=== PATIENT | female | born 1990 | race Caucasian/White ===

== ENCOUNTER 2016-11-06 22:19 | Inpatient (IN) | payer OTHER ==
--- NOTE | 2016-11-06 22:42 | PDOC ---
History of Present Illness <Sophie Tinoco - Last Filed: 11/07/16 02:19> - General History Source: Patient Exam Limitations: No Limitations - History of Present Illness Initial Comments: 11/06/16 23:11 The patient is a 26 year old female, with significant past medical history of gallstones (03/30/16), appendectomy, who presents today complaining of RUQ pain , nausea, and vomiting starting this morning. The pain is severe, radiates to her back, and has progressively worsened throughout the day. She notes 1 episode of vomiting and last meal was spaghetti for lunch. She reports that she never followed up for the gallstones found on 03/30/16. The patient is a poor historian secondary to the pain. Her LMP was 10/14/16. Denies fever, chills, diarrhea. Allergies: Pork PCP: Dr. Maguire <Mariah Mckeon - Last Filed: 11/07/16 02:22> - General Chief Complaint: Pain, Acute Stated Complaint: ABD PAIN Time Seen by Provider: 11/06/16 22:42 Past History - Past Medical History Anemia: No Asthma: No Cancer: No Cardiac Disorders: No CVA: No COPD: No CHF: No Diabetes: No HTN: No Hypercholesterolemia: No Suicide Attempt (Hx): No Seizures: No Thyroid Disease: No - Surgical History Abdominal Surgery: Yes Appendectomy: Yes - Immunization History Immunization Up to Date: Yes - Psycho/Social/Smoking Cessation Hx Anxiety: No Suicidal Ideation: No Smoking Status: No Smoking History: Never smoked Have you smoked in the past 12 months: No Information on smoking cessation initiated: No Hx Alcohol Use: No Drug/Substance Use Hx: No Substance Use Type: None Hx Substance Use Treatment: No <Sophie Tinoco - Last Filed: 11/07/16 02:19> <Mariah Mckeon - Last Filed: 11/07/16 02:22> - Past Medical History Allergies/Adverse Reactions: Allergies Allergy/AdvReac Type Severity Reaction Status Date / Time No Known Drug Allergies Allergy Verified 11/06/16 22:29 pork derived (porcine) Allergy Verified 11/06/16 22:29 Pork/Porcine Containing Allergy Verified 11/06/16 22:29 Products Home Medications: Ambulatory Orders NK [No Known Home Medication] 03/30/16 Review of Systems - Review of Systems Able to Perform ROS?: Yes Comments:: 11/06/16 23:22 GENERAL/CONSTITUTIONAL: No fever or chills. No weakness. HEAD, EYES, EARS, NOSE AND THROAT: No change in vision. No ear pain or discharge. No sore throat. CARDIOVASCULAR: No chest pain or shortness of breath. RESPIRATORY: No cough, wheezing, or hemoptysis. GASTROINTESTINAL: Yes: nausea, 1 episode of vomiting, RUQ pain that radiates to the right back. No diarrhea or constipation. GENITOURINARY: No dysuria, frequency, or change in urination. MUSCULOSKELETAL: No joint or muscle swelling or pain. No neck or back pain. SKIN: No rash NEUROLOGIC: No headache, vertigo, loss of consciousness, or change in strength/ sensation. ENDOCRINE: No increased thirst. No abnormal weight change. HEMATOLOGIC/LYMPHATIC: No anemia, easy bleeding, or history of blood clots. ALLERGIC/IMMUNOLOGIC: No hives or skin allergy. <Mariah Mckeon - Last Filed: 11/07/16 02:22> *Physical Exam - Vital Signs Last Vital Signs Temp Pulse Resp BP Pulse Ox 97.9 F 64 20 146/21 100 11/06/16 22:29 11/06/16 22:29 11/06/16 22:29 11/06/16 22:29 11/06/16 22:29 <Sophie Tinoco - Last Filed: 11/07/16 02:19> - Vital Signs Last Vital Signs Temp Pulse Resp BP Pulse Ox 97.9 F 64 20 146/21 100 11/06/16 22:29 11/06/16 22:29 11/06/16 22:29 11/06/16 22:29 11/06/16 22:29 - Physical Exam Comments: 11/06/16 23:26 GENERAL: Awake, alert, and fully oriented. Appears uncomfortable. HEAD: No signs of trauma EYES: PERRLA, EOMI, sclera anicteric, conjunctiva clear ENT: Auricles normal inspection, hearing grossly normal, nares patent, oropharynx clear without exudates. Moist mucosa NECK: Normal ROM, supple, no lymphadenopathy, JVD, or masses LUNGS: Breath sounds equal, clear to auscultation bilaterally. No wheezes, and no crackles HEART: Regular rate and rhythm, normal S1 and S2, no murmurs, rubs or gallops ABDOMEN: Nondistended. Tenderness to the RUQ with voluntary guarding, no rebound. Normoactive bowel sounds. No masses EXTREMITIES: Normal range of motion, no edema. No clubbing or cyanosis. No cords, erythema, or tenderness NEUROLOGICAL: Cranial nerves II through XII grossly intact. Normal speech, normal gait SKIN: No jaundice. Warm, Dry, normal turgor, no rashes or lesions noted. <Mariah Mckeon - Last Filed: 11/07/16 02:22> ED Treatment Course - LABORATORY CBC & Chemistry Diagram: 11/06/16 22:55 11/06/16 22:55 <Sophie Tinoco - Last Filed: 11/07/16 02:19> - LABORATORY CBC & Chemistry Diagram: 11/06/16 22:55 11/06/16 22:55 - RADIOLOGY Radiograph Interpretation: 11/07/16 01:18 Exam: Abdominal sonogram Images: 53 Clinical indication: Right upper quadrant pain. Findings: The pancreas has a normal appearance and echotexture. The visualized aorta and proximal IVC are unremarkable. The liver parenchyma is mildly hyperechoic. The liver measures 15.8 cm in length. The right kidney has a normal appearance and echotexture measures 10.9 cm in length. No parenchymal mass, shadowing calculus or hydronephrosis is seen. A shadowing calculus is noted in the gallbladder neck. There is no mural thickening or pericholecystic fluid. The CBD measures 5 mm in diameter within normal limits. Hepatopetal flow is present in the main portal vein. Impression: Calculus in the gallbladder neck. No mural thickening or pericholecystic fluid seen. Increased echogenicity of the hepatic parenchyma consistent with fatty infiltration. Normal appearance of the visualized pancreas , CBD and right kidney. THIS DOCUMENT HAS BEEN ELECTRONICALLY SIGNED Channing Wynn M.D. 11/07/2016 00: 48 ALEXSANDRA Sepulveda Please call Imaging Team Assistant [phone] ([phone]) with questions. <Mariah Mckeon - Last Filed: 11/07/16 02:22> Medical Decision Making - Medical Decision Making 11/07/16 00:12 Pt presents to the ED complaining of the acute onset of severe RUQ pain accompanied by nausea and vomiting. Denies fever. + significant RUQ tenderness with voluntary guarding. Patient has a known history of gallstones. Differential includes cholecystitis, billiary colic, less likely pancreatitis or choledocholithiasis. Will check labs and give pain control, obtain official RUQ US and reassess. 11/07/16 01:56 Official US shows stone in the gallbladder neck. Given patient's significant discomfort, will call surgery for admission. <Sophie Tinoco - Last Filed: 11/07/16 02:19> - Medical Decision Making 11/07/16 01:59 Dr. Yordy Tesfaye was paged via paging service at 1:58am. The answering service connected the call to Dr. Yordy Tesfaye who spoke with Dr. Tinoco regarding the patient's care. <Mariah Mckeon - Last Filed: 11/07/16 02:22> *DC/Admit/Observation/Transfer - Discharge Dispostion Admit: Yes Decision to Admit order Date/Time: 11/07/16 02:04 <Sophie Tinoco - Last Filed: 11/07/16 02:19> - Attestations Scribe Attestion: 11/06/16 23:27 Documentation prepared by SHERON Lyons, acting as medical office technologist for Sophie Tinoco MD. <Mariah Mckeon - Last Filed: 11/07/16 02:22> Diagnosis at time of Disposition: Cholelithiasis - Referrals Referrals: Margareth Cevallos MD [Primary Care Provider] -
[2016-11-06] MEDS ORDERED: morphine CARPU-JECT 4 MG/1 ML DISP.SYRIN IVPUSH ONE (22:53)
[2016-11-06] MEDS ORDERED: morphine CARPU-JECT 4 MG/1 ML DISP.SYRIN ONE (23:01)
[2016-11-06 23:34] LABS: BASOPHIL 0.3 % (0-2.0); EOSINOPHIL 2.2 % (0-4.5); MCH 26.3 pg (25.7-33.7); MCHC 32.5 g/dl (32.0-36.0); MEAN CELL VOLUME 80.9 fl (80-96); NEUTROPHILS 79.6 % (42.8-82.8); PLATELET COUNT 190 K/MM3 (134-434); RDW 13.7 % (11.6-15.6); WHITE BLOOD COUNT 14.2 K/mm3 (4.0-10.0)
[2016-11-06 23:59] LABS: ANION GAP 13 (8-16); BILIRUBIN,TOTAL 0.5 mg/dL (0.2-1.0); CALCIUM 8.9 mg/dL (8.5-10.1); CO2 24 mmol/L (21-32); COCKROFT - GAULT 115.3535; CREATININE 0.7 mg/dL (0.55-1.02); GLUCOSE,RANDOM 128 mg/dL (74-106); SGOT/AST 45 U/L (15-37); SGPT/ALT 29 U/L (12-78); TOT PROT 7.8 g/dl (6.4-8.2)
[2016-11-07] LABS: ALK PHOS 119 U/L (45-117)
[2016-11-07 01:49] LABS: URINE APPEARANCE CLOUDY; URINE BILIRUBIN NEGATIVE (NEGATIVE); URINE BLOOD NEGATIVE (NEGATIVE); URINE COLOR DKYELLOW; URINE GLUCOSE (UA) NEGATIVE (NEGATIVE); URINE KETONE TRACE (NEGATIVE); URINE NITRITE NEGATIVE (NEGATIVE); URINE UROBILINOGEN 4.0 E.U/dl E.U./dl (0.2-1.0)
[2016-11-07 01:53] LABS: URINE LEUK ESTERASE TRACE (NEGATIVE); URINE PROTEIN 1+ (NEGATIVE)
[2016-11-07 01:54] LABS: URINE BACTERIA RARE /hpf (NONE SEEN); URINE MUCUS RARE; URINE RBC 1 /hpf (0-3); URINE WBC 20 /hpf (3-5)
--- NOTE | 2016-11-07 02:20 | PN ---
<Raymond Jack - Last Filed: 11/07/16 02:20> Teaching Attending Note Name of Resident: Yossi Cervantes ATTENDING PHYSICIAN STATEMENT I saw and evaluated the patient. I reviewed the resident's note and discussed the case with the resident. I agree with the resident's findings and plan as documented. SUBJECTIVE: OBJECTIVE: ASSESSMENT AND PLAN: <Sherita Marin - Last Filed: 11/07/16 02:52> Teaching Attending Note ATTENDING PHYSICIAN STATEMENT I saw and evaluated the patient. I reviewed the resident's note and discussed the case with the resident. I agree with the resident's findings and plan as documented. SUBJECTIVE: 26 yo F with a PMHx of gallstones (03/30/16), appendectomy presents with epigastric pain radiating to RUQ pain since this afternoon. Sharp in nature. Two episodes of vomiting. Similar to her episode in March. Patient recently had a in January 2016. Patient states she wanted to treat her gallstones naturally both in March and today because she is . Denies fevers, chills and diarrhea. Patient states her last meal was 1pm today. Patient also endorses recent productive cough. Denies dysuria. OBJECTIVE: Last Vital Signs Temp Pulse Resp BP Pulse Ox 97.9 F 64 20 146/21 100 11/06/16 22:29 11/06/16 22:29 11/06/16 22:29 11/06/16 22:29 11/06/16 22:29 GENERAL: Awake, alert, and fully oriented, in no acute distress. HEENT: Atraumatic. Dry oral mucosa. Normocephalic. No sinus tenderness. No LAD. NECK: No JVD. No thyroid masses. Supple. LUNGS: Clear to auscultation bilaterally. No wheezing, rhonchi or rales. HEART: Regular rate and rhythm, normal S1 and S2, no murmurs, rubs or gallops, peripheral pulses normal and equal bilaterally. ABDOMEN: Soft, Mild abdominal tenderness in RUQ and RLQ. Negative rebound tenderness. , normoactive bowel sounds. No guarding, no rebound. No Masses. MUSCULOSKELETAL: No joint tenderness or erythema. No muscle tenderness. Normal muscle bulk and tone. EXTREMITIES: Normal inspection, No edema. No clubbing or cyanosis. Moves all extremities. NEUROLOGICAL: Normal speech, gait not assessed, no focal sensorimotor deficits. SKIN: Warm, dry, normal turgor, no rashes or lesions noted. CBCD WBC 14.2 K/mm3 (4.0-10.0) H D 11/06/16 22:55 RBC 4.63 M/mm3 (3.60-5.2) 11/06/16 22:55 Hgb 12.2 GM/dL (10.7-15.3) 11/06/16 22:55 Hct 37.5 % (32.4-45.2) 11/06/16 22:55 MCV 80.9 fl (80-96) 11/06/16 22:55 MCHC 32.5 g/dl (32.0-36.0) 11/06/16 22:55 RDW 13.7 % (11.6-15.6) D 11/06/16 22:55 Plt Count 190 K/MM3 (134-434) 11/06/16 22:55 MPV 10.0 fl (7.5-11.1) 11/06/16 22:55 CMP Sodium 141 mmol/L (136-145) 11/06/16 22:55 Potassium 3.9 mmol/L (3.5-5.1) 11/06/16 22:55 Chloride 104 mmol/L (98-107) 11/06/16 22:55 Carbon Dioxide 24 mmol/L (21-32) 11/06/16 22:55 Anion Gap 13 (8-16) 11/06/16 22:55 BUN 16 mg/dL (7-18) 11/06/16 22:55 Creatinine 0.7 mg/dL (0.55-1.02) 11/06/16 22:55 Creat Clearance w eGFR > 60 (>60) 11/06/16 22:55 Calcium 8.9 mg/dL (8.5-10.1) 11/06/16 22:55 Total Bilirubin 0.5 mg/dL (0.2-1.0) D 11/06/16 22:55 AST 45 U/L (15-37) H 11/06/16 22:55 ALT 29 U/L (12-78) 11/06/16 22:55 Alkaline Phosphatase 119 U/L (45-117) H 11/06/16 22:55 Total Protein 7.8 g/dl (6.4-8.2) 11/06/16 22:55 Albumin 4.0 g/dl (3.4-5.0) 11/06/16 22:55 Abdominal Sonogram Calculus in the gallbladder neck. No mural thickening or pericholecystic fluid seen. Increased echogenicity of the hepatic parenchyma consistent with fatty infiltration. Normal appearance of the visualized pancreas, CBD and right kidney. ASSESSMENT AND PLAN: 26 yo F with PMHx of gallstones (03/30/16), appendectomy presents with cholelithiasis. 1.) Cholelithiasis. Symptomatic without clear evidence of cholecystitis at this time. Leukocytosis may be reactive from pain or vomiting. -Tylenol PRN for pain -IVF hydration -NPO -Surgery consult for possible cholecystectomy -Trend WBC count. If increasing WBC, consider to treat for cholecystitis. Diet -NPO DVT ppx -SCDS Admit to observation Documentation is prepared by Sherita Marin acting as medical information specialist for Raymond Jack M.D.
[2016-11-07] MEDS ORDERED: ACETAMINOPHEN 325 MG TABLET (FP) PO PRN (02:48)
[2016-11-07] MEDS ORDERED: SODIUM CHLORIDE 1,000 ML IV SCH (03:00)
--- NOTE | 2016-11-07 03:31 | HP ---
CHIEF COMPLAINT: PCP:Dr. Maguire HISTORY OF PRESENT ILLNESS: The patient is a 26 year old female, with significant past medical history of gallstones (03/30/16), appendectomy, who presents ED complaining of epigastric pain. patient reports sudden onset of epigastric pain that progressively worsened thought the day. Patient report's pain 10/10 sharp in quality non radiating. associated with 3 episodes of nbnb vomits. has not had food or an appetite since pain has started. Has a similar episode gallstones found on 03/30/16 after recent delivery of a baby with out follow up. She denies fever, chills, diaphoresis, generalized weakness. She denies chest pain, shortness of breath, cough She denies diarrhea, dysuria, hematuria, urinary frequency and urgency, flank pain, vaginal discharge/vaginal bleeding patient currently breast feeding, and would like to avoid toxic drugs to baby. Recent Travel: no PAST MEDICAL HISTORY: no PAST SURGICAL HISTORY: 2 Csec, appendectomy Social History: lives with infant child at home. Smoking:no Alcohol:no Drugs: no Family History: mother Pre diabetic Allergies: No Known Drug Allergies Allergy (Verified 11/06/16 22:29) pork derived (porcine) Allergy (Verified 11/06/16 22:29) Pork/Porcine Containing Products Allergy (Verified 11/06/16 22:29) HOME MEDICATIONS: Home Medications Medication Instructions Recorded NK [No Known Home Medication] 03/30/16 REVIEW OF SYSTEMS CONSTITUTIONAL: Absent: fever, chills, diaphoresis, generalized weakness, malaise, loss of appetite, weight change HEENT: Absent: rhinorrhea, nasal congestion, throat pain, throat swelling, difficulty swallowing, mouth swelling, ear pain, eye pain, visual changes CARDIOVASCULAR: Absent: chest pain, syncope, palpitations, irregular heart rate, lightheadedness , peripheral edema RESPIRATORY: cough, Absent: shortness of breath, dyspnea with exertion, orthopnea, wheezing, stridor , hemoptysis GASTROINTESTINAL:abdominal pain, nausea, vomiting, Absent: abdominal distension, diarrhea, constipation, melena, hematochezia GENITOURINARY: Absent: dysuria, frequency, urgency, hesitancy, hematuria, flank pain, genital pain MUSCULOSKELETAL: Absent: myalgia, arthralgia, joint swelling, back pain, neck pain SKIN: Absent: rash, itching, pallor HEMATOLOGIC/IMMUNOLOGIC: Absent: easy bleeding, easy bruising, lymphadenopathy, frequent infections ENDOCRINE: Absent: unexplained weight gain, unexplained weight loss, heat intolerance, cold intolerance NEUROLOGIC: Absent: headache, focal weakness or paresthesias, dizziness, unsteady gait, seizure, mental status changes, bladder or bowel incontinence PSYCHIATRIC: Absent: anxiety, depression, suicidal or homicidal ideation, hallucinations. PHYSICAL EXAMINATION Vital Signs - 24 hr 11/06/16 22:29 Temperature 97.9 F Pulse Rate 64 Respiratory 20 Rate Blood Pressure 146/21 O2 Sat by Pulse 100 Oximetry (%) GENERAL: Awake, alert, and fully oriented, in mild acute distress. HEAD: Normal with no signs of trauma. EYES: Pupils equal, round and reactive to light, extraocular movements intact, sclera anicteric, conjunctiva clear. No lid lag. EARS, NOSE, THROAT: Ears normal, nares patent, oropharynx clear without exudates. Moist mucous membranes. NECK: Normal range of motion, supple without lymphadenopathy, JVD, or masses. LUNGS: Breath sounds equal, clear to auscultation bilaterally. No wheezes, and no crackles. No accessory muscle use. HEART: Regular rate and rhythm, normal S1 and S2 without murmur, rub or gallop. ABDOMEN: Soft, tender RUQ >LLQ, not distended, normoactive bowel sounds, no guarding, no rebound, no masses. No hepatomegaly or splenomegaly. MUSCULOSKELETAL: Normal range of motion at all joints. No bony deformities or tenderness. No CVA tenderness. LOWER EXTREMITIES: 2+ pulses, warm, well-perfused. No calf tenderness. No peripheral edema. NEUROLOGICAL: Normal speech. Normal gait. PSYCHIATRIC: Cooperative. Good eye contact. Appropriate mood and affect. SKIN: Warm, dry, normal turgor, no rashes or lesions noted, normal capillary refill. Laboratory Results - last 24 hr 11/06/16 11/06/16 11/07/16 22:55 22:55 01:32 WBC 14.2 H D RBC 4.63 Hgb 12.2 Hct 37.5 MCV 80.9 MCHC 32.5 RDW 13.7 D Plt Count 190 MPV 10.0 Neutrophils % 79.6 D Lymphocytes % 15.0 D Monocytes % 2.9 L Eosinophils % 2.2 Basophils % 0.3 Sodium 141 Potassium 3.9 Chloride 104 Carbon Dioxide 24 Anion Gap 13 BUN 16 Creatinine 0.7 Creat Clearance w eGFR > 60 Random Glucose 128 H Calcium 8.9 Total Bilirubin 0.5 D AST 45 H ALT 29 Alkaline Phosphatase 119 H Total Protein 7.8 Albumin 4.0 Lipase 161 Urine Color Dkyellow Urine Appearance Cloudy Urine pH 5.0 Urine Protein 1+ H Urine Glucose (UA) Negative Urine Ketones Trace H Urine Blood Negative Urine Nitrite Negative Urine Bilirubin Negative Urine Urobilinogen 4.0 e.u/dl H Ur Leukocyte Esterase Trace H D Urine RBC 1 Urine WBC 20 Ur Epithelial Cells Many Urine Bacteria Rare Urine Mucus Rare Urine HCG, Qual Negative 26 yo F with PMHx of gallstones (03/30/16), appendectomy presents with cholelithiasis. 1.) Cholelithiasis. Symptomatic without clear evidence of cholecystitis at this time. Leukocytosis may be reactive from pain or vomiting. -Tylenol PRN for pain -IVF hydration -NPO -Surgery consult for possible cholecystectomy -Trend WBC count. If increasing WBC, consider to treat for cholecystitis. Admit to observation Abdominal Sonogram prelim finding: The pancreas has a normal appearance and echotexture. The visualized aorta and proximal IVC are unremarkable. The liver parenchyma is mildly hyperechoic. The liver measures 15.8 cm in length. The right kidney has a normal appearance and echotexture measures 10.9 cm in length. No parenchymal mass, shadowing calculus or hydronephrosis is seen. A shadowing calculus is noted in the gallbladder neck. There is no mural thickening or pericholecystic fluid. The CBD measures 5 mm in diameter within normal limits. Hepatopetal flow is present in the main portal vein. Impression: Calculus in the gallbladder neck. No mural thickening or pericholecystic fluid seen. Increased echogenicity of the hepatic parenchyma consistent with fatty infiltration. Normal appearance of the visualized pancreas , CBD and right kidney. ASSESSMENT/PLAN: 26 year old female, with significant past medical history of gallstones (), appendectomy, who presents ED complaining of epigastric pain found to have Cholelithiasis. nausea and vomiting. Denies fever. + significant RUQ tenderness with voluntary guarding. Patient has a known history of gallstones. . Cholelithiasis: less likely cholecystitis, billiary colic, pancreatitis or choledocholithiasis. leukocytosis, significant RUQ tenderness with voluntary guarding, patient with known history of gall stones, leuckusytosis may be reactive, if WBC elevation persist or increase will consider cholecystitis and start antibiotics. pain control with tylynol PRN inlight of patient wants least toxic meds for breast feeding. IVF for hydration surgery consulted Diet -NPO DVT ppx -SCDS dispo: observe Visit type - Emergency Visit Emergency Visit: Yes ED Registration Date: 11/07/16 Care time: The patient presented to the Emergency Department on the above date and was hospitalized for further evaluation of their emergent condition. - New Patient This patient is new to me today: Yes Date on this admission: 11/07/16 - Critical Care Critical Care patient: No
[2016-11-07 06:19] LABS: BASOPHIL 0.4 % (0-2.0); EOSINOPHIL 0.7 % (0-4.5); MCH 26.7 pg (25.7-33.7); MCHC 33.1 g/dl (32.0-36.0); MEAN CELL VOLUME 80.7 fl (80-96); MEAN PLT VOLUME 9.4 fl (7.5-11.1); NEUTROPHILS 77.1 % (42.8-82.8); PLATELET COUNT 205 K/MM3 (134-434); WHITE BLOOD COUNT 7.7 K/mm3 (4.0-10.0)
[2016-11-07 06:32] LABS: INR 1.2 (0.82-1.09); PROTHROMBIN TIME (PATIENT) 13.2 SEC (9.98-11.88)
[2016-11-07 06:35] LABS: ACTIVATED PTT 31.4 SECONDS (26.9-34.4)
[2016-11-07 07:06] LABS: ALBUMIN 3.6 g/dl (3.4-5.0); ALK PHOS 124 U/L (45-117); ANION GAP 6 (8-16); BILIRUBIN,TOTAL 0.6 mg/dL (0.2-1.0); CALCIUM 8.4 mg/dL (8.5-10.1); CO2 28 mmol/L (21-32); COCKROFT - GAULT 115.3535; CREATININE 0.7 mg/dL (0.55-1.02); GLUCOSE,RANDOM 98 mg/dL (74-106); MAGNESIUM 2.2 mg/dL (1.8-2.4); PHOSPHOROUS 4.5 mg/dL (2.5-4.9); SGOT/AST 76 U/L (15-37); SGPT/ALT 67 U/L (12-78)
--- NOTE | 2016-11-07 08:46 | PN ---
Progress Note (short form) - Note Progress Note: Subjective: still has abd pain, in RUQ and RLQ but less severe than yesterday. states , that pain was colicky , and intermittent from 9 am to 5 pM then it remained there and worsened in severity till she received pain meds in ER. pain did not completely resolved. has no N/V no w . no dysuria or SOB Objective: Vital Signs: Last Vital Signs Temp Pulse Resp BP Pulse Ox 98.2 F 88 16 102/67 98 11/07/16 06:37 11/07/16 06:37 11/07/16 06:37 11/07/16 06:37 11/07/16 06:37 Laboratory Results - last 24 hr 11/06/16 11/06/16 11/07/16 22:55 22:55 01:32 WBC 14.2 H D RBC 4.63 Hgb 12.2 Hct 37.5 MCV 80.9 MCHC 32.5 RDW 13.7 D Plt Count 190 MPV 10.0 Neutrophils % 79.6 D Lymphocytes % 15.0 D Monocytes % 2.9 L Eosinophils % 2.2 Basophils % 0.3 INR PTT (Actin FS) Sodium 141 Potassium 3.9 Chloride 104 Carbon Dioxide 24 Anion Gap 13 BUN 16 Creatinine 0.7 Creat Clearance w eGFR > 60 Random Glucose 128 H Calcium 8.9 Phosphorus Magnesium Total Bilirubin 0.5 D AST 45 H ALT 29 Alkaline Phosphatase 119 H Total Protein 7.8 Albumin 4.0 Lipase 161 Urine Color Dkyellow Urine Appearance Cloudy Urine pH 5.0 Urine Protein 1+ H Urine Glucose (UA) Negative Urine Ketones Trace H Urine Blood Negative Urine Nitrite Negative Urine Bilirubin Negative Urine Urobilinogen 4.0 e.u/dl H Ur Leukocyte Esterase Trace H D Urine RBC 1 Urine WBC 20 Ur Epithelial Cells Many Urine Bacteria Rare Urine Mucus Rare Urine HCG, Qual Negative 11/07/16 11/07/16 11/07/16 06:10 06:10 06:10 WBC 7.7 D RBC 4.28 Hgb 11.5 Hct 34.6 MCV 80.7 MCHC 33.1 RDW 14.0 Plt Count 205 MPV 9.4 Neutrophils % 77.1 Lymphocytes % 18.1 D Monocytes % 3.7 L Eosinophils % 0.7 Basophils % 0.4 INR 1.20 H PTT (Actin FS) 31.4 Sodium 142 Potassium 4.0 Chloride 108 H Carbon Dioxide 28 Anion Gap 6 L BUN 14 Creatinine 0.7 Creat Clearance w eGFR > 60 Random Glucose 98 D Calcium 8.4 L Phosphorus 4.5 Magnesium 2.2 Total Bilirubin 0.6 AST 76 H D ALT 67 D Alkaline Phosphatase 124 H Total Protein 7.0 Albumin 3.6 Lipase Urine Color Urine Appearance Urine pH Urine Protein Urine Glucose (UA) Urine Ketones Urine Blood Urine Nitrite Urine Bilirubin Urine Urobilinogen Ur Leukocyte Esterase Urine RBC Urine WBC Ur Epithelial Cells Urine Bacteria Urine Mucus Urine HCG, Qual Physical Exam: NAD, pleasant and cooperative dry MM, no LAP in neck . anecteric sclera CV: RRR, ? 2/6 SM at LUSB. Lungs : CTAB Abd: sfot, TTP in all quadrants , vikki in RUQ, Epigastric area nd RLQ . with no rebound tenderness or guarding. Neg Marie's . NL BS ext: no edema , or erythema Imaging: US prelim report reviewed. NO wall thickening . fatty liver and gall stones Assessment/Plan: Vandana is a 26 y/o pleasant lady with h/o Apendectomy at age 17 , cholelithiasis and no other significant medical problems who presented with abd pain . 1- Abd pain, with evidence of cholelithiasis: although US did not show signs of wall thickening on prelim report, her presentation is concerning for acute cholecystitis given that her intermittent pain yesterday became constant and persisted since 9 pm last night ( better now though ). increase in LFTS this am is also concerning - Check HIDA scan - NPO - change IVF to D5NS @75 - start Abx , if HIDA neg can stop them. - surgical eval pending. Even if HIDA is neg, she will likely need cholecystectomy as this is her second biliary event to avoid gall stone pancreatitis in future - pain control if severe - Instructed to hold breast feeding while on abx and pain meds ( 10 month old baby ) - trend LFTS and WBC. monitor for fever DVT px Visit type - Emergency Visit Emergency Visit: Yes ED Registration Date: 11/07/16 Care time: The patient presented to the Emergency Department on the above date and was hospitalized for further evaluation of their emergent condition. - New Patient This patient is new to me today: No - Critical Care Critical Care patient: No
[2016-11-07] MEDS: DEXTROSE 5%-NORMAL SALINE 1,000 ML IV SCH (09:19)
[2016-11-07] MEDS: METRONIDAZOLE 500 MG PREMIXED 100 ML IVPB SCH ×2 (09:19→17:24)
[2016-11-07] MEDS: CEFTRIAXONE 50 ML IVPB SCH (09:20)
[2016-11-07 12:06] VITALS: BMI 27.3
[2016-11-08] MEDS: METRONIDAZOLE 500 MG PREMIXED 100 ML IVPB SCH ×3 (01:04→17:28)
[2016-11-08] MEDS: DEXTROSE 5%-NORMAL SALINE 1,000 ML IV SCH ×4 (01:05→21:37)
[2016-11-08 07:50] LABS: BASOPHIL 0.4 % (0-2.0); EOSINOPHIL 3.5 % (0-4.5); MCH 27.2 pg (25.7-33.7); MCHC 33.7 g/dl (32.0-36.0); MEAN CELL VOLUME 80.7 fl (80-96); MEAN PLT VOLUME 9.7 fl (7.5-11.1); NEUTROPHILS 67.6 % (42.8-82.8); PLATELET COUNT 184 K/MM3 (134-434); RDW 13.8 % (11.6-15.6); WHITE BLOOD COUNT 6.1 K/mm3 (4.0-10.0)
--- NOTE | 2016-11-08 08:12 | PN ---
Physical Exam: SUBJECTIVE: Patient seen and examined at bedside. No overnight events . No new complaints. RUQ pain has improved. Denies CP,BYRNE, SOB, palpitation, N/V OBJECTIVE: Vital Signs Period Temp Pulse Resp BP Sys/Carbajal Pulse Ox Last 24 Hr 98.2 F-98.9 F 51-61 16-20 94-114/53-78 98-99 GENERAL: AAO x3, NAD HEAD:NC/AT EYES: PERRL, EOMI, sclera anicteric, conjunctiva clear. No ptosis. ENT: moist mucous membranes. NECK: no jvd, supple. LUNGS: CTAB, no wheezes, no crackles, no accessory muscle use. HEART: RRR, no m/g/r ABDOMEN: Soft,RUQ tenderness improved, ewing (-),nondistended, normoactive bowel sounds, no guarding, no rebound, no hepatosplenomegaly, no masses. EXTREMITIES: 2+ pulses, warm, well-perfused, no edema. Laboratory Results - last 24 hr 11/08/16 06:20 WBC 6.1 RBC 4.45 Hgb 12.1 Hct 35.9 MCV 80.7 MCHC 33.7 RDW 13.8 Plt Count 184 MPV 9.7 Neutrophils % 67.6 Lymphocytes % 23.0 D Monocytes % 5.5 Eosinophils % 3.5 D Basophils % 0.4 Active Medications Generic Name Dose Route Start Last Admin Trade Name Freq PRN Reason Stop Dose Admin Acetaminophen 650 mg 11/07/16 02:48 Tylenol - PO Q4H PRN FEVER OR PAIN Ceftriaxone Sodium 50 mls @ 100 mls/hr 11/07/16 10:00 11/07/16 09:20 Rocephin 1gm Ivpb (Pre-Docked) IVPB 100 mls/hr DAILY SANTO Administration Metronidazole 100 mls @ 100 mls/hr 11/07/16 10:00 11/08/16 01:04 Flagyl 500mg Premixed Ivpb - IVPB 100 mls/hr Q8H-IV SANTO Administration Dextrose/Sodium Chloride 1,000 mls @ 75 mls/hr 11/07/16 08:45 11/08/16 01:05 D5-Ns - IV 75 mls/hr ASDIR SANTO Administration IMAGING: * Gallbladder US: COMPARISON: 03/30/2016 FINDINGS: The liver is upper limits of normal in size with diffusely increased echogenicity. Gallstone inoted within the neck of the gallbladder. Measures approximately 0.6 cm. No abnormal bile duct dilatation. The common bile duct measures 0.5 cm. No abnormal gallbladder wall thickening. The visualized portions of the pancreas, aorta and IVC unremarkable. The right kidney measures 10.9 cm and is unremarkable. IMPRESSION : Fatty infiltration of the liver. Cholelithiasis. * MRI/ABDOMEN MRI W/O CONTRAST /MRCP MRI OF THE ABDOMEN WITHOUT IV GADOLINIUM WITH MRCP HISTORY: 26-year-old female with cholelithiasis and increasing LFTs TECHNIQUE: Multiplanar multisequential MRI of the abdomen without the intravenous administration of contrast were performed on a high field 1.5 Shanell GE magnet. Axial and coronal T2 fat-sat, axial T1 (in and out of phase), axial T2 FIESTA, axial T1 fat sat - LAVA without contrast in addition to coronal LAVA and axial diffusion weighted images were performed. Axial and coronal thin and thick slab 3 D MRCP was performed. No comparison MRI is available. Correlation is made with ultrasound of the abdomen dated November 06, 2016. FINDINGS: The visualized lung bases inferior mediastinum are unremarkable. The liver is normal in size with no evidence of abnormal loss of signal on out of phase imaging to suggest fatty infiltration. There is no evidence of focal hepatic signal abnormality.. The spleen is normal in size with no evidence of focal abnormal signal. The pancreas is homogeneous in signal with no evidence of focal abnormal signal. The pancreatic duct is nondilated. The gallbladder is distended with containing a 6 mm gallstone but with no evidence of abnormal wall thickening or surrounding edema. The CBD is upper normal in size measuring 6 to 7 mm with no evidence of filling defects. There is birds-beak like narrowing of the distal CBD. There is no intrahepatic biliary ductal dilatation. The adrenal glands are unremarkable. There is no focal renal signal abnormality. There is no hydronephrosis. There is no evidence of abdominal lymphadenopathy or abdominal ascites. There are no abnormally dilated bowel loops. The visualized osseous structures are grossly unremarkable. IMPRESSION: Cholelithiasis with no MRI evidence of cholecystitis. No choledocholithiasis seen. Birds beak like narrowing of the distal CBD but with no CBD or intrahepatic biliary duct dilatation is nonspecific and could ampullary edema or spasm. Reported By: Trip Jordan MD * NM/HIDA SCAN W EJECTION* HIDA SCAN WITH EJECTION FRACTION CLINICAL INDICATION : 26-year-old female with cholelithiasis and persistent abdominal pain and increased LFTs TECHNIQUE: Following the intravenous administration of 6.1 mCi of Tc 99M of Choletec, dynamic images of the abdomen in the anterior projection were obtained through 60 minutes. Following that Ensure high lipid meal was given to the patient over 15 minutes with additional imaging to determine the gallbladder ejection fraction. COMPARISON: Ultrasound of the abdomen dated November 06, 2016 FINDINGS: There is normal homogeneous perfusion of the liver with no evidence of focal lesion. Extraction of tracer from the blood pool by the liver parenchyma is normal. Tracer appears promptly and within the biliary tree. The gallbladder begins to fill by 15 minutes post injection of tracer and fill adequately. Tracer in the small bowel is first seen at 45-60minutes. The gallbladder ejection fraction was calculated at 81% IMPRESSION: Filling of the gallbladder excludes acute cystic duct obstruction. Normal gallbladder contraction of 81% Reported By: Trip Jordan MD ASSESSMENT/PLAN: 26 yo F with significant pmhx of cholelithiasis and appendectomy admitted for intractable abdominal pain Problem List - Problems (1) Cholelithiasis Assessment/Plan: * This is her second episode of RUQ pain in past year that has prompted trip to hospital. Imaging confirms gallstone as noted previously. * US shows 6mm stone in neck of gallbladder w/o obstruction, and no wall thickening. * confirmed on MRCP * HIDA scan shows appropriate filling and EF 81 % * Evaluated by surgery and will have elective lap CCY tomorrow pending stable LFT's. * NPO after midnight * Continue Ceftriaxone and flagyl for now. Visit type - Emergency Visit Emergency Visit: Yes ED Registration Date: 11/07/16 Care time: The patient presented to the Emergency Department on the above date and was hospitalized for further evaluation of their emergent condition. - New Patient This patient is new to me today: Yes Date on this admission: 11/08/16 - Critical Care Critical Care patient: No - Discharge Referral Referred to [facility] Med P.C.: No
[2016-11-08 08:19] LABS: ALBUMIN 3.4 g/dl (3.4-5.0); BILIRUBIN,TOTAL 0.8 mg/dL (0.2-1.0)
[2016-11-08 08:20] LABS: BILIRUBIN,DIRECT 0.1 mg/dL (0.0-0.2); CALCIUM 8.3 mg/dL (8.5-10.1); COCKROFT - GAULT 120.326; CREATININE 0.7 mg/dL (0.55-1.02); TOT PROT 6.8 g/dl (6.4-8.2)
[2016-11-08] MEDS: CEFTRIAXONE 50 ML IVPB SCH (12:13)
--- NOTE | 2016-11-08 14:01 | PN ---
Teaching Attending Note Name of Resident: Sam Lynch ATTENDING PHYSICIAN STATEMENT I saw and evaluated the patient. I reviewed the resident's note and discussed the case with the resident. I agree with the resident's findings and plan as documented. SUBJECTIVE: OBJECTIVE: NAD, pleasant and cooperative CV: RRR Abd :Soft, ND, TTP in RUQ , and RLQ. no rebound tenderness or guarding . Ext : no edema Assessment/Plan: Vandana is a 26 y/o pleasant lady with h/o Apendectomy at age 17 , cholelithiasis and no other significant medical problems who presented with abd pain . 1- Abd pain, with evidence of cholelithiasis: suspicion for acute cholecystitis . - HIDA scan pending - MRCP with no choledolithiasis - NPO . If HIDA is neg will feed - cont D5NS , decrease rate as coughing - Cont Abx . if HIDA is neg , will DC - Surgery help is appreciated - LFTS imporved . ? passed a stone - scheduled for CCY tomorrow DVT px
--- NOTE | 2016-11-08 15:17 | PN ---
Progress Note (short form) - Note Progress Note: surgery pt seen and examined. pain free. Hida negative for acute cholecystitis. MRCP no acute cholecystitis. No obvious cbd stone. on exam abd is soft, nt Plan- biliary colic vs passed cbd stone. pt offered non emergent surgery and agrees. will plan for surgery tomorrow if lfts dont spike. npo after mn. Rocephin/flagyl are adequate prophylaxis.
[2016-11-09] MEDS: METRONIDAZOLE 500 MG PREMIXED 100 ML IVPB SCH ×2 (01:10→10:10)
[2016-11-09 07:48] LABS: ALBUMIN 3.5 g/dl (3.4-5.0); BILIRUBIN,TOTAL 0.6 mg/dL (0.2-1.0); TOT PROT 6.9 g/dl (6.4-8.2)
[2016-11-09 07:51] LABS: BILIRUBIN,DIRECT 0.2 mg/dL (0.0-0.2)
[2016-11-09] MEDS: CEFTRIAXONE 50 ML IVPB SCH (10:09)
--- NOTE | 2016-11-09 12:19 | PN ---
Teaching Attending Note Name of Resident: Sam Lynch ATTENDING PHYSICIAN STATEMENT I saw and evaluated the patient. I reviewed the resident's note and discussed the case with the resident. I agree with the resident's findings and plan as documented. SUBJECTIVE: no fever or chills, no abd pain, no fever . OBJECTIVE: NAD, pleasant and cooperative CV: RRR Abd :Soft, NT, nl BS . Ext : no edema Assessment/Plan: Vandana is a 26 y/o pleasant lady with h/o Apendectomy at age 17 , cholelithiasis and no other significant medical problems who presented with abd pain . 1- Abd pain, with evidence of cholelithiasis: suspicion for acute cholecystitis. - no evidence of acute cholecystitis or CBD stones - no ABx needed - MRCP with no choledolithiasis - NPO for CCY today - diet after sx dc home in am
--- NOTE | 2016-11-09 13:59 | PN ---
Physical Exam: SUBJECTIVE: Patient seen and examined at bedside.No overnight events.No new complaints. Abd.pain is improved. Denies CP,BYRNE, SOB, N/V. OBJECTIVE: Vital Signs Period Temp Pulse Resp BP Sys/Carbajal Pulse Ox Last 24 Hr 98 F-99.2 F 50-73 17-20 94-106/52-64 97-98 GENERAL: AAO x3, NAD HEAD:NC/AT EYES: PERRL, EOMI, sclera anicteric, conjunctiva clear. No ptosis. ENT: moist mucous membranes. NECK: no jvd, supple. LUNGS: CTAB, no wheezes, no crackles, no accessory muscle use. HEART: RRR, no m/g/r ABDOMEN: Soft,RUQ tenderness improved, ewing (-),nondistended, normoactive bowel sounds, no guarding, no rebound, no hepatosplenomegaly, no masses. EXTREMITIES: 2+ pulses, warm, well-perfused, no edema. Laboratory Results - last 24 hr 11/09/16 11/09/16 06:00 06:00 Total Bilirubin 0.6 D Direct Bilirubin 0.2 D AST 23 D ALT 41 Alkaline Phosphatase 116 Total Protein 6.9 Albumin 3.5 Total Amylase 49 Active Medications Generic Name Dose Route Start Last Admin Trade Name Freq PRN Reason Stop Dose Admin Acetaminophen 650 mg 11/07/16 02:48 11/08/16 18:16 Tylenol - PO 650 mg Q4H PRN Administration FEVER OR PAIN Dextrose/Sodium Chloride 1,000 mls @ 50 mls/hr 11/08/16 14:15 11/08/16 21:37 D5-Ns - IV 50 mls/hr ASDIR SANTO Administration IMAGING: * Gallbladder US: COMPARISON: 03/30/2016 FINDINGS: The liver is upper limits of normal in size with diffusely increased echogenicity. Gallstone inoted within the neck of the gallbladder. Measures approximately 0.6 cm. No abnormal bile duct dilatation. The common bile duct measures 0.5 cm. No abnormal gallbladder wall thickening. The visualized portions of the pancreas, aorta and IVC unremarkable. The right kidney measures 10.9 cm and is unremarkable. IMPRESSION : Fatty infiltration of the liver. Cholelithiasis. * MRI/ABDOMEN MRI W/O CONTRAST /MRCP MRI OF THE ABDOMEN WITHOUT IV GADOLINIUM WITH MRCP HISTORY: 26-year-old female with cholelithiasis and increasing LFTs TECHNIQUE: Multiplanar multisequential MRI of the abdomen without the intravenous administration of contrast were performed on a high field 1.5 Shanell GE magnet. Axial and coronal T2 fat-sat, axial T1 (in and out of phase), axial T2 FIESTA, axial T1 fat sat - LAVA without contrast in addition to coronal LAVA and axial diffusion weighted images were performed. Axial and coronal thin and thick slab 3 D MRCP was performed. No comparison MRI is available. Correlation is made with ultrasound of the abdomen dated November 06, 2016. FINDINGS: The visualized lung bases inferior mediastinum are unremarkable. The liver is normal in size with no evidence of abnormal loss of signal on out of phase imaging to suggest fatty infiltration. There is no evidence of focal hepatic signal abnormality.. The spleen is normal in size with no evidence of focal abnormal signal. The pancreas is homogeneous in signal with no evidence of focal abnormal signal. The pancreatic duct is nondilated. The gallbladder is distended with containing a 6 mm gallstone but with no evidence of abnormal wall thickening or surrounding edema. The CBD is upper normal in size measuring 6 to 7 mm with no evidence of filling defects. There is birds-beak like narrowing of the distal CBD. There is no intrahepatic biliary ductal dilatation. The adrenal glands are unremarkable. There is no focal renal signal abnormality. There is no hydronephrosis. There is no evidence of abdominal lymphadenopathy or abdominal ascites. There are no abnormally dilated bowel loops. The visualized osseous structures are grossly unremarkable. IMPRESSION: Cholelithiasis with no MRI evidence of cholecystitis. No choledocholithiasis seen. Birds beak like narrowing of the distal CBD but with no CBD or intrahepatic biliary duct dilatation is nonspecific and could ampullary edema or spasm. Reported By: Trip Jordan MD * NM/HIDA SCAN W EJECTION* HIDA SCAN WITH EJECTION FRACTION CLINICAL INDICATION : 26-year-old female with cholelithiasis and persistent abdominal pain and increased LFTs TECHNIQUE: Following the intravenous administration of 6.1 mCi of Tc 99M of Choletec, dynamic images of the abdomen in the anterior projection were obtained through 60 minutes. Following that Ensure high lipid meal was given to the patient over 15 minutes with additional imaging to determine the gallbladder ejection fraction. COMPARISON: Ultrasound of the abdomen dated November 06, 2016 FINDINGS: There is normal homogeneous perfusion of the liver with no evidence of focal lesion. Extraction of tracer from the blood pool by the liver parenchyma is normal. Tracer appears promptly and within the biliary tree. The gallbladder begins to fill by 15 minutes post injection of tracer and fill adequately. Tracer in the small bowel is first seen at 45-60minutes. The gallbladder ejection fraction was calculated at 81% IMPRESSION: Filling of the gallbladder excludes acute cystic duct obstruction. Normal gallbladder contraction of 81% Reported By: Trip Jordan MD ASSESSMENT/PLAN: 26 yo F with significant pmhx of cholelithiasis and appendectomy admitted for intractable abdominal pain Problem List - Problems (1) Cholelithiasis Assessment/Plan: * She is scheduled for Lap cholecystectomy today * Her LFT's are trending down. * US shows 6mm stone in neck of gallbladder w/o obstruction, and no wall thickening. * confirmed on MRCP * HIDA scan shows appropriate filling and EF 81 % * Continue Ceftriaxone and flagyl for now. Visit type - Emergency Visit Emergency Visit: Yes ED Registration Date: 11/09/16 Care time: The patient presented to the Emergency Department on the above date and was hospitalized for further evaluation of their emergent condition. - New Patient This patient is new to me today: No - Critical Care Critical Care patient: No - Discharge Referral Referred to [facility] Med P.C.: No
[2016-11-09] MEDS ORDERED: LIDOCAINE HCL 4% TOPICAL SOLN (50 ML/BOTTLE) ONE (14:14)
[2016-11-09] MEDS ORDERED: MIDAZOLAM HCL 2 MG/2 ML SINGLE DOSE VIAL ONE (14:14)
[2016-11-09] MEDS ORDERED: PROPOFOL 20 ML ONE (14:14)
[2016-11-09] MEDS ORDERED: ROCURONIUM BROMIDE 50 MG/5 ML VIAL ONE (14:14)
[2016-11-09] MEDS ORDERED: SUCCINYLCHOLINE CHLORIDE 200 MG/10 ML VIAL ONE (14:15)
--- NOTE | 2016-11-09 14:58 | PN ---
Progress Note (short form) - Note Progress Note: surgery pt seen and examined. feels well. no pain afebrile abd- soft, nt Laboratory Tests 11/08/16 11/09/16 06:20 06:00 WBC 6.1 Total Bilirubin 0.6 D Direct Bilirubin 0.2 D AST 23 D ALT 41 Alkaline Phosphatase 116 Plan- will proceed with surgery per patients wishes. she was also offered to explore elective options with a surgeon in her network and declines.
[2016-11-09] MEDS ORDERED: DEXAMETHASONE SOD PHOSPHATE 4 MG/1 ML VIAL ONE (15:08)
[2016-11-09] MEDS ORDERED: NEOSTIGMINE METHYLSULFATE 0.5 MG/ML - 10 ML MDV ONE (15:31)
[2016-11-09] MEDS ORDERED: GLYCOPYRROLATE 0.2 MG/1 ML VIAL ONE ×2 (15:31)
[2016-11-09] MEDS ORDERED: KETOROLAC TROMETHAMINE 30 MG/1 ML VIAL ONE (15:33)
[2016-11-09] MEDS ORDERED: morphine CARPU-JECT 4 MG/1 ML DISP.SYRIN IVPB PRN (15:48)
[2016-11-09] MEDS ORDERED: oxyCODONE HCL 5 MG TABLET PO PRN (15:48)
--- NOTE | 2016-11-09 15:48 | OP ---
Operative Note - Note: Operative Date: 11/09/16 Pre-Operative Diagnosis: symptomatic cholelithiasis Operation: laparoscopic choelecystectomy, lavage Findings: pale gb with stones Post-Operative Diagnosis: Same as Pre-op Surgeon: Piotr Allen Anesthesiologist/PODIATRIC MEDICINE PROFESSOR: Barry Cam Anesthesia: General Specimens Removed: gb Estimated Blood Loss (mls): 20
[2016-11-09] MEDS ORDERED: ACETAMINOPHEN 325 MG TABLET (FP) PO PRN (16:10)
[2016-11-09] MEDS ORDERED: PROMETHAZINE HCL 25 MG/1 ML VIAL IVPUSH PRN (16:28)
[2016-11-09] MEDS ORDERED: LACTATED RINGERS SOLUTION 1,000 ML IV SCH (16:30)
[2016-11-09] MEDS: ONDANSETRON 4 MG/2 ML VIAL IVPUSH PRN ×2 (17:48→19:16)
[2016-11-09] MEDS: DEXTROSE 5%-NORMAL SALINE 1,000 ML IV SCH (19:20)
[2016-11-09] MEDS ORDERED: ONDANSETRON 4 MG/2 ML VIAL IVPUSH PRN (22:19)
[2016-11-10] MEDS: DEXTROSE 5%-NORMAL SALINE 1,000 ML IV SCH (03:30)
[2016-11-10] MEDS ORDERED: ONDANSETRON *ODT* 4 MG TABLET SL PRN (07:17)
[2016-11-10] MEDS ORDERED: PANTOPRAZOLE SODIUM 40 MG in SODIUM CHLORIDE 100 ML IVPB SCH (10:00)
[2016-11-10] MEDS ORDERED: PANTOPRAZOLE SODIUM 40 MG/100 ML PRE-DOCKED IVPB SCH (10:00)
[2016-11-10] MEDS ORDERED: ENOXAPARIN NA (PORCINE) 40 MG/0.4 ML DISP.SYRIN SQ SCH (10:00)
--- NOTE | 2016-11-10 13:12 | PN ---
Progress Note (short form) - Note Progress Note: surgery pt tolerating diet and voiding. surgically stable for d/c. no narcotics, no abx. f/u in 2 weeks [phone]. ok to shower, ok to drive, no lifting, regular diet. 2 weeks off work.
--- NOTE | 2016-11-10 13:55 | OP ---
DATE OF OPERATION: 11/09/2016 PREOPERATIVE DIAGNOSIS: Symptomatic cholelithiasis. POSTOPERATIVE DIAGNOSIS: Symptomatic cholelithiasis. PROCEDURE: Laparoscopic cholecystectomy, lavage. SURGEON: Piotr Allen DO [employer]SPORT COMPANY MANAGER: None. ANESTHESIOLOGIST: Barry Cam MD (general) SPECIMENS: Gallbladder. INTRAOPERATIVE FINDINGS: A pale gallbladder with stones. BLOOD LOSS: 20 mL. DISPOSITION: Recovery room in stable condition. BRIEF HISTORY: This is a 26-year-old female who was admitted to [facility] for signs and symptoms of symptomatic cholelithiasis. She had a negative HIDA scan and a negative MRCP and was confirmed to have gallstones. Patient elected to have surgery while an inpatient and presents now for surgery. Patient already received Rocephin and Flagyl antibiotic. DESCRIPTION OF PROCEDURE: The patient was placed in supine position. General anesthesia was initiated. The abdomen was prepped and draped in sterile fashion. A transverse incision was then made infraumbilical with scalpel, used to go through skin and subcutaneous tissue. The fascia was then lifted with Sarath clamp, Veress needle was inserted, and pneumoperitoneum was created. Next, an 11-mm trocar was placed, followed by insertion of a 10-mm 0-degree laparoscope. Next, an additional 11-mm trocar was placed subxiphoid and two 5-mm trocars were placed in the right upper quadrant; one was midclavicular line and one was anterior axillary line. At this point attention was turned toward to the gallbladder. It was pale. There were light adhesions to the stomach and the gallbladder. These were carefully teased down. The fundus was lifted cephalad, the infundibulum retracted laterally. The peritoneal peel was dissected down, exposing a generous cystic duct and a small cystic artery. Both were clipped and divided. The gallbladder was then liberated from the liver bed using electrocautery, and hemostasis was maintained using electrocautery. At this point the gallbladder was removed through the infraumbilical trocar site after a mild fascial dilatation, sent to Pathology marked as specimen. Limited lavage was done. All return was clear. Trocars were then removed under direct visualization and no bleeding was seen. Pneumoperitoneum was released. The fascia of the infraumbilical trocar site was then closed with multiple interrupted 0 Vicryl sutures. The small ventral hernia above this incision was not addressed. The 4 skin incisions were then closed with subcuticular Biosyn and Dermabond. Dressing was placed. DO VLADIMIR INMAN/[id number] MTDD
[2016-11-10 13:58] VITALS: BP 101/57; PULSE 58; TEMP 98
--- NOTE | 2016-11-10 14:29 | DS ---
Physical Exam: SUBJECTIVE: Patient seen and examined at bedside. POD# 1 s/p lap. cholecystectomy. tolerated diet. Passed flatus. Pain minimal . Denies CP, BYRNE,SOB , palpitations, N/V. OBJECTIVE: Vital Signs Period Temp Pulse Resp BP Sys/Carbajal Pulse Ox Last 24 Hr 97.8 F-98.8 F 55-100 11-20 96-127/50-82 98-100 PHYSICAL EXAM GENERAL: AAO x3, NAD HEAD:NC/AT EYES: PERRL, EOMI, sclera anicteric, conjunctiva clear. No ptosis. ENT: moist mucous membranes. NECK: no jvd, supple. LUNGS: CTAB, no wheezes, no crackles, no accessory muscle use. HEART: RRR, no m/g/r ABDOMEN: Soft,lap port incisions appear clean, dry, and intact. ,nondistended, normoactive bowel sounds, no guarding, no rebound, no hepatosplenomegaly, no masses. EXTREMITIES: 2+ pulses, warm, well-perfused, no edema. LABS Laboratory Last Values WBC 6.1 K/mm3 (4.0-10.0) 11/08/16 06:20 RBC 4.45 M/mm3 (3.60-5.2) 11/08/16 06:20 Hgb 12.1 GM/dL (10.7-15.3) 11/08/16 06:20 Hct 35.9 % (32.4-45.2) 11/08/16 06:20 MCV 80.7 fl (80-96) 11/08/16 06:20 MCHC 33.7 g/dl (32.0-36.0) 11/08/16 06:20 RDW 13.8 % (11.6-15.6) 11/08/16 06:20 Plt Count 184 K/MM3 (134-434) 11/08/16 06:20 MPV 9.7 fl (7.5-11.1) 11/08/16 06:20 Neutrophils % 67.6 % (42.8-82.8) 11/08/16 06:20 Lymphocytes % 23.0 % (8-40) D 11/08/16 06:20 Monocytes % 5.5 % (3.8-10.2) 11/08/16 06:20 Eosinophils % 3.5 % (0-4.5) D 11/08/16 06:20 Basophils % 0.4 % (0-2.0) 11/08/16 06:20 INR 1.20 (0.82-1.09) H 11/07/16 06:10 PTT (Actin FS) 31.4 SECONDS (26.9-34.4) 11/07/16 06:10 Sodium 142 mmol/L (136-145) 11/08/16 06:20 Potassium 3.6 mmol/L (3.5-5.1) 11/08/16 06:20 Chloride 107 mmol/L (98-107) 11/08/16 06:20 Carbon Dioxide 24 mmol/L (21-32) 11/08/16 06:20 Anion Gap 11 (8-16) 11/08/16 06:20 BUN 9 mg/dL (7-18) D 11/08/16 06:20 Creatinine 0.7 mg/dL (0.55-1.02) 11/08/16 06:20 Creat Clearance w eGFR > 60 (>60) 11/07/16 06:10 Random Glucose 96 mg/dL (74-106) 11/08/16 06:20 Calcium 8.3 mg/dL (8.5-10.1) L 11/08/16 06:20 Phosphorus 4.5 mg/dL (2.5-4.9) 11/07/16 06:10 Magnesium 2.2 mg/dL (1.8-2.4) 11/07/16 06:10 Total Bilirubin 0.6 mg/dL (0.2-1.0) D 11/09/16 06:00 Direct Bilirubin 0.2 mg/dL (0.0-0.2) D 11/09/16 06:00 AST 23 U/L (15-37) D 11/09/16 06:00 ALT 41 U/L (12-78) 11/09/16 06:00 Alkaline Phosphatase 116 U/L (45-117) 11/09/16 06:00 Total Protein 6.9 g/dl (6.4-8.2) 11/09/16 06:00 Albumin 3.5 g/dl (3.4-5.0) 11/09/16 06:00 Total Amylase 49 U/L (25-115) 11/09/16 06:00 Lipase 161 U/L (73-393) 11/06/16 22:55 Urine Color Dkyellow 11/07/16 01:32 Urine Appearance Cloudy 11/07/16 01:32 Urine pH 5.0 (5.0-8.0) 11/07/16 01:32 Ur Specific [place] 1.025 (1.005-1.025) 11/07/16 01:32 Urine Protein 1+ (NEGATIVE) H 11/07/16 01:32 Urine Glucose (UA) Negative (NEGATIVE) 11/07/16 01:32 Urine Ketones Trace (NEGATIVE) H 11/07/16 01:32 Urine Blood Negative (NEGATIVE) 11/07/16 01:32 Urine Nitrite Negative (NEGATIVE) 11/07/16 01:32 Urine Bilirubin Negative (NEGATIVE) 11/07/16 01:32 Urine Urobilinogen 4.0 e.u/dl E.U./dl (0.2-1.0) H 11/07/16 01:32 Ur Leukocyte Esterase Trace (NEGATIVE) H D 11/07/16 01:32 Urine RBC 1 /hpf (0-3) 11/07/16 01:32 Urine WBC 20 /hpf (3-5) 11/07/16 01:32 Ur Epithelial Cells Many /hpf (FEW) 11/07/16 01:32 Urine Bacteria Rare /hpf (NONE SEEN) 11/07/16 01:32 Urine Mucus Rare 11/07/16 01:32 Urine HCG, Qual Negative 11/07/16 01:32 IMAGING: * Gallbladder US: COMPARISON: 03/30/2016 FINDINGS: The liver is upper limits of normal in size with diffusely increased echogenicity. Gallstone inoted within the neck of the gallbladder. Measures approximately 0.6 cm. No abnormal bile duct dilatation. The common bile duct measures 0.5 cm. No abnormal gallbladder wall thickening. The visualized portions of the pancreas, aorta and IVC unremarkable. The right kidney measures 10.9 cm and is unremarkable. IMPRESSION : Fatty infiltration of the liver. Cholelithiasis. * MRI/ABDOMEN MRI W/O CONTRAST /MRCP MRI OF THE ABDOMEN WITHOUT IV GADOLINIUM WITH MRCP HISTORY: 26-year-old female with cholelithiasis and increasing LFTs TECHNIQUE: Multiplanar multisequential MRI of the abdomen without the intravenous administration of contrast were performed on a high field 1.5 Shanell GE magnet. Axial and coronal T2 fat-sat, axial T1 (in and out of phase), axial T2 FIESTA, axial T1 fat sat - LAVA without contrast in addition to coronal LAVA and axial diffusion weighted images were performed. Axial and coronal thin and thick slab 3 D MRCP was performed. No comparison MRI is available. Correlation is made with ultrasound of the abdomen dated November 06, 2016. FINDINGS: The visualized lung bases inferior mediastinum are unremarkable. The liver is normal in size with no evidence of abnormal loss of signal on out of phase imaging to suggest fatty infiltration. There is no evidence of focal hepatic signal abnormality.. The spleen is normal in size with no evidence of focal abnormal signal. The pancreas is homogeneous in signal with no evidence of focal abnormal signal. The pancreatic duct is nondilated. The gallbladder is distended with containing a 6 mm gallstone but with no evidence of abnormal wall thickening or surrounding edema. The CBD is upper normal in size measuring 6 to 7 mm with no evidence of filling defects. There is birds-beak like narrowing of the distal CBD. There is no intrahepatic biliary ductal dilatation. The adrenal glands are unremarkable. There is no focal renal signal abnormality. There is no hydronephrosis. There is no evidence of abdominal lymphadenopathy or abdominal ascites. There are no abnormally dilated bowel loops. The visualized osseous structures are grossly unremarkable. IMPRESSION: Cholelithiasis with no MRI evidence of cholecystitis. No choledocholithiasis seen. Birds beak like narrowing of the distal CBD but with no CBD or intrahepatic biliary duct dilatation is nonspecific and could ampullary edema or spasm. Reported By: Trip Jordan MD * NM/HIDA SCAN W EJECTION* HIDA SCAN WITH EJECTION FRACTION CLINICAL INDICATION : 26-year-old female with cholelithiasis and persistent abdominal pain and increased LFTs TECHNIQUE: Following the intravenous administration of 6.1 mCi of Tc 99M of Choletec, dynamic images of the abdomen in the anterior projection were obtained through 60 minutes. Following that Ensure high lipid meal was given to the patient over 15 minutes with additional imaging to determine the gallbladder ejection fraction. COMPARISON: Ultrasound of the abdomen dated November 06, 2016 FINDINGS: There is normal homogeneous perfusion of the liver with no evidence of focal lesion. Extraction of tracer from the blood pool by the liver parenchyma is normal. Tracer appears promptly and within the biliary tree. The gallbladder begins to fill by 15 minutes post injection of tracer and fill adequately. Tracer in the small bowel is first seen at 45-60minutes. The gallbladder ejection fraction was calculated at 81% IMPRESSION: Filling of the gallbladder excludes acute cystic duct obstruction. Normal gallbladder contraction of 81% Reported By: Trip Jordan MD HOSPITAL COURSE: 26 y/o pleasant lady with h/o Apendectomy at age 17 , cholelithiasis and no other significant medical problems who presented with abd pain . She was was noted to have gallstones on abdominal US but no wall thickening or obstructions of CBD. No signs of acute cholangitis. HIDA and MRI were done and noted as above. She was given antibiotic for 2 days. Given that this was the second need for hospitalization for intractable biliary pain in less than a year and stones identified she was evaluated by surgery and elected to have Lap cholecystectomy. She tolerated the procedure well. She was able to tolerate regular diet and passed flatus. No significant pain. She is stable for discharge and instructed to follow up with surgeon in two weeks. Date of Admission:11/09/16 Date of Discharge: 11/10/16 Minutes to complete discharge: 35 Discharge Summary Reason For Visit: CHOLELITHIASIS Current Active Problems Cholelithiasis (Acute) Epigastric abdominal pain (Acute) Condition: Stable - Instructions Diet, Activity, Other Instructions: -You will need to follow up with Dr. Allen in two weeks. [phone]. -It is ok to shower, and drive. No heavy lifting for two weeks. -Regular diet. -2 weeks off work. -Increase activity as tolerated. Referrals: Margareth Cevallos MD [Primary Care Provider] - Piotr Allen MD [Staff Physician] - Disposition: HOME - Home Medications Comprehensive Discharge Medication List: Ambulatory Orders NK [No Known Home Medication] 03/30/16 Problem List - Problems (1) Cholelithiasis This patient is new to me today: No Emergency Visit: Yes ED Registration Date: 11/09/16 Care time: The patient presented to the Emergency Department on the above date and was hospitalized for further evaluation of their emergent condition. Critical Care patient: No - Discharge Referral Referred to [facility] No
--- NOTE | 2016-11-10 21:03 | PN ---
Teaching Attending Note Name of Resident: Sam Lynch ATTENDING PHYSICIAN STATEMENT I saw and evaluated the patient. I reviewed the resident's note and discussed the case with the resident. I agree with the resident's findings and plan as documented. SUBJECTIVE: Patient is comfortable with no acute distress. No fever or chills, tolerated diet well. OBJECTIVE: Vital Signs Temperature 98 F 11/10/16 13:56 Pulse Rate 58 L 11/10/16 13:56 Respiratory Rate 20 11/10/16 13:56 Blood Pressure 101/57 11/10/16 13:56 O2 Sat by Pulse Oximetry (%) 98 11/10/16 14:00 CBCD WBC 6.1 K/mm3 (4.0-10.0) 11/08/16 06:20 RBC 4.45 M/mm3 (3.60-5.2) 11/08/16 06:20 Hgb 12.1 GM/dL (10.7-15.3) 11/08/16 06:20 Hct 35.9 % (32.4-45.2) 11/08/16 06:20 MCV 80.7 fl (80-96) 11/08/16 06:20 MCHC 33.7 g/dl (32.0-36.0) 11/08/16 06:20 RDW 13.8 % (11.6-15.6) 11/08/16 06:20 Plt Count 184 K/MM3 (134-434) 11/08/16 06:20 MPV 9.7 fl (7.5-11.1) 11/08/16 06:20 CMP Sodium 142 mmol/L (136-145) 11/08/16 06:20 Potassium 3.6 mmol/L (3.5-5.1) 11/08/16 06:20 Chloride 107 mmol/L (98-107) 11/08/16 06:20 Carbon Dioxide 24 mmol/L (21-32) 11/08/16 06:20 Anion Gap 11 (8-16) 11/08/16 06:20 BUN 9 mg/dL (7-18) D 11/08/16 06:20 Creatinine 0.7 mg/dL (0.55-1.02) 11/08/16 06:20 Creat Clearance w eGFR > 60 (>60) 11/07/16 06:10 Random Glucose 96 mg/dL (74-106) 11/08/16 06:20 Calcium 8.3 mg/dL (8.5-10.1) L 11/08/16 06:20 Total Bilirubin 0.6 mg/dL (0.2-1.0) D 11/09/16 06:00 AST 23 U/L (15-37) D 11/09/16 06:00 ALT 41 U/L (12-78) 11/09/16 06:00 Alkaline Phosphatase 116 U/L (45-117) 11/09/16 06:00 Total Protein 6.9 g/dl (6.4-8.2) 11/09/16 06:00 Albumin 3.5 g/dl (3.4-5.0) 11/09/16 06:00 Home Medications Medication Instructions Recorded NK [No Known Home Medication] 03/30/16 PE: as per resident ASSESSMENT AND PLAN: Vandana is a 26 y/o pleasant lady with h/o Apendectomy at age 17 , cholelithiasis and no other significant medical problems who presented with abd pain . # POD #1 s/p Lap chol. for acute cholecystitis. pt tolerating diet and voiding. surgically stable as per for d/c. no narcotics, no abx. f /u in 2 weeks [phone]. ok to shower, ok to drive, no lifting, regular diet. 2 weeks off work.
--- NOTE | 2016-11-11 14:07 | CONS ---
DATE OF CONSULTATION: DATE OF DICTATION: 11/07/2016 REFERRING PHYSICIAN: Augusta Pendleton MD REASON FOR REFERRAL: Acute cholecystitis. BRIEF HISTORY: This is a 26-year-old female admitted with acute onset of right upper quadrant pain that progressively worsened. She has complained of sharp pain that radiates to the back as well. She denies fever, chills, or sweats. PAST MEDICAL HISTORY: No coronary disease, hypertension, or diabetes. PAST SURGICAL HISTORY: section x2, appendectomy. MEDICATIONS: None. ALLERGIES: None. SOCIAL HISTORY: Patient does not smoke nor drink. PHYSICAL EXAMINATION: HEENT: There is no icterus. Abdomen: Soft, nondistended. There is right upper quadrant tenderness to deep palpation; however, there is no guarding, no rebound. LABORATORY DATA: The patient was admitted with a white count of 14.2, now it is 7.7. Her transaminases at the time of admission were mildly elevated at 45, and today it has gone to 76 and 67 (AST and ALT respectively). The alkaline phosphatase has always been elevated at 119, and today it is 124. Ultrasound is consistent with cholelithiasis. IMPRESSION/PLAN: Chronic cholecystitis, cholelithiasis, acute cholecystitis: This is a 26-year-old female admitted with rather abrupt onset of right upper abdominal pain with radiation to the right back. Physical exam today demonstrates no evidence of guarding or rebound so she does not require any acute surgical intervention. She has gallstones. I suspect, given the rise in the LFTs, she should be ruled out for choledocholithiasis. An MRCP will be performed, and if this is negative, we will continue to follow the LFTs, and if the LFTs level or decrease, she will then be considered for a laparoscopic cholecystectomy. Thank you for allowing me to participate in the care of your patient. Further recommendations will be made pending the MRCP and future blood work. FLAKITO VALENZUELA M.D. [id number]
--- NOTE | 2016-11-11 16:15 | PATH ---
Surgical Pathology Report Patient Name: MARYURI CHAVEZ Med. Rec. #: [id number] /Age/Gender: 1990 (Age: 26) / F Account: [id number] Location: [facility] MED/SURG Taken: 11/10/2016 Received: 11/10/2016 Reported: 11/11/2016 Physicians: Piotr Allen M.D. Specimen(s) Received GALLBLADDER Clinical History Cholelithiasis Final Diagnosis GALLBLADDER, CHOLECYSTECTOMY: CHRONIC CHOLECYSTITIS AND CHOLELITHIASIS. ONE BENIGN REACTIVE LYMPH NODE. Electronically Signed Holger Gerardo M.D. Gross Description Received in formalin, labeled "gallbladder" is a 8.0 x 2.5 x 2.5 cm gallbladder with a 0.2 cm in length portion of cystic duct attached. There is a 0.4 cm greatest dimension periductal lymph node present. The outer surface is williamson-vance and varies from smooth to shaggy. The lumen contains green, tenacious bile as well as a 0.9 cm in greatest dimension williamson, spherical cholelith. The mucosa is green and velvety. The wall of the gallbladder averages 0.1 cm in thickness. Telescope Operator sections are submitted in one cassette. 11/10/201611/10/2016
== END 2016-11-10 19:26 | disposition home or self-care (01) | DRG 263 ==
LOC: JER 22:19 → JERBED 11-07 02:19 → UNDOADMOB 11-07 02:29 → JERBED 11-07 02:29 → J7W 11-07 07:44 → OBSVTOIN 11-09 15:48
PROVIDERS: ADMIT Internal Medicine; ATTEND Internal Medicine
PROC: 0FT44ZZ Resection of Gallbladder, Percutaneous Endoscopic Approach (ICD-10-PCS; principal; 2016-11-09 13:00)
DX: K80.20 Calculus of gallbladder without cholecystitis without obstruction (principal); K43.9 Ventral hernia without obstruction or gangrene
CPT/HCPCS: 36415; 74181-TC; 76705-TC; 78227-TC; 80048; 80053; 80076; 81003; 81015; 82150; 83690; 83735; 84100; 84703; 85025; 85610; 85730; 88304-TC; 94760; 99283-25; A9537; G0378